=== PATIENT | female | born 1975 | race Two or more races ===

== ENCOUNTER → 2018-01-04 | Emergency (ER) | payer OTHER ==
[~2018-01-04] VITALS: Ht 167.6 cm; Wt 84.4 kg
[~2018-01-04] MED LIST: KETO10TA2 PO; MUCINEX DM ER1 EAC1 PO; MUCINEX600 MG; PROMETH-CODEIN 65 ML PO; TOPROL XL25 MG PO; VOLTAREM 50 MG PO; ZITHROMAX500 MG PO
== END | disposition home or self-care (01) ==
LOC: ER 06:58
DX: J32.8 Other chronic sinusitis (principal); R50.9 Fever, unspecified

== ENCOUNTER 2018-06-21 00:37 | Emergency (ER) | payer OTHER ==
[~2018-06-21] VITALS: Ht 170.2 cm; Wt 83.9 kg
[2018-06-21] MEDS ORDERED: REDNESS RELIEF15 ML OP (01:10)
[2018-06-21] MEDS ORDERED: GARAMYCIN OPHT3.5 GM OP (01:10)
== END 2018-06-21 01:30 | disposition home or self-care (01) ==
LOC: ER 00:37
DX: H10.89 Other conjunctivitis (principal)

== ENCOUNTER 2018-11-10 15:06 | Emergency (ER) | payer OTHER ==
[~2018-11-10] VITALS: Ht 170.2 cm; Wt 83.9 kg
[~2018-11-10 15:06] MED LIST changes: +GARAMYCIN OPHT3.5 GM OP; +REDNESS RELIEF15 ML OP
== END 2018-11-10 16:21 | disposition home or self-care (01) ==
LOC: ER 15:06
DX: N39.0 Urinary tract infection, site not specified (principal)

== ENCOUNTER 2018-12-15 12:40 | Outpatient (CLI) | payer OTHER | END 2018-12-15 12:54 | disposition home or self-care (01) | LOC: LAB 12:40 | DX: Z11.3 Encounter for screening for infections with a predominantly sexual mode of transmission (principal) ==

== ENCOUNTER → 2019-02-13 06:48 | Outpatient (CLI) | payer OTHER | END | disposition home or self-care (01) | LOC: LAB 06:48 | DX: N91.1 Secondary amenorrhea (principal) ==

== ENCOUNTER 2019-02-13 07:19 | Outpatient (CLI) | payer OTHER | END 2019-02-13 07:43 | disposition home or self-care (01) | LOC: MAMO-SONO 07:19 | DX: N60.01 Solitary cyst of right breast (principal); N91.1 Secondary amenorrhea; Z12.31 Encounter for screening mammogram for malignant neoplasm of breast ==

== ENCOUNTER 2020-03-05 09:03 | Outpatient (CLI) | payer OTHER | END 2020-03-05 09:06 | disposition home or self-care (01) | LOC: CERTIFICAD 09:03 → LAB 09:03 | PROVIDERS: ATTEND Family Medicine | DX: Z11.1 Encounter for screening for respiratory tuberculosis (principal) ==

== ENCOUNTER 2020-05-23 05:00 | Outpatient (CLI) | payer OTHER | END 2020-05-23 15:41 | disposition home or self-care (01) | LOC: PPH VACUNA 05:00 | DX: Z23 Encounter for immunization (principal) ==

== ENCOUNTER 2020-06-05 08:53 | Outpatient (CLI) | payer OTHER | END 2020-06-05 08:57 | disposition home or self-care (01) | LOC: LAB 08:53 | PROVIDERS: ATTEND Obstetrics & Gynecology | DX: D64.89 Other specified anemias (principal); N39.0 Urinary tract infection, site not specified; E03.8 Other specified hypothyroidism; E13.9 Other specified diabetes mellitus without complications; E78.00 Pure hypercholesterolemia, unspecified ==

== ENCOUNTER → 2020-06-05 | Outpatient (CLI) | payer OTHER | END | disposition home or self-care (01) | LOC: MAMO-SONO 05-20 07:45 | PROVIDERS: ATTEND Obstetrics & Gynecology | DX: Z12.31 Encounter for screening mammogram for malignant neoplasm of breast (principal); N60.01 Solitary cyst of right breast ==

== ENCOUNTER 2020-08-21 10:01 | Outpatient (CLI) | payer OTHER | END 2020-08-21 18:00 | disposition home or self-care (01) | LOC: PPH VACUNA 10:01 | DX: Z23 Encounter for immunization (principal) ==

== ENCOUNTER 2021-08-25 13:34 | Outpatient (CLI) | payer OTHER | END 2021-08-25 13:54 | disposition home or self-care (01) | LOC: LAB 13:34 | PROVIDERS: ATTEND General Practice | DX: Z20.828 Contact with and (suspected) exposure to other viral communicable diseases (principal); R05.8 Other specified cough; R06.02 Shortness of breath; R50.9 Fever, unspecified; Z03.818 Encounter for observation for suspected exposure to other biological agents ruled out ==

== ENCOUNTER 2021-08-25 13:54 | Emergency (ER) | payer OTHER ==
[~2021-08-25] VITALS: Ht 170.2 cm; Wt 83.9 kg
== END 2021-08-25 16:00 | disposition home or self-care (01) ==
LOC: ER 13:54
DX: B34.9 Viral infection, unspecified (principal); B96.0 Mycoplasma pneumoniae [M. pneumoniae] as the cause of diseases classified elsewhere

== ENCOUNTER 2021-09-29 11:27 | Outpatient (CLI) | payer OTHER | END 2021-09-29 14:41 | disposition home or self-care (01) | LOC: LAB 11:27 | DX: Z20.828 Contact with and (suspected) exposure to other viral communicable diseases (principal) ==

== ENCOUNTER 2022-01-07 08:37 | Emergency (ER) | payer OTHER ==
[~2022-01-07] VITALS: Ht 170.2 cm; Wt 83.9 kg
== END 2022-01-07 10:40 | disposition home or self-care (01) ==
LOC: ER 08:37
DX: J06.9 Acute upper respiratory infection, unspecified (principal); B34.9 Viral infection, unspecified

== ENCOUNTER 2022-02-01 12:05 | Outpatient (CLI) | payer OTHER | END 2022-02-01 12:08 | disposition home or self-care (01) | LOC: LAB 12:05 | DX: Z20.828 Contact with and (suspected) exposure to other viral communicable diseases (principal) ==

== ENCOUNTER 2022-06-11 13:14 | Outpatient (CLI) | payer OTHER | END 2022-06-11 13:15 | disposition home or self-care (01) | LOC: PPH VACUNA 13:14 | PROVIDERS: ATTEND Emergency Medicine Pediatric Emergency Medicine | DX: Z23 Encounter for immunization (principal) ==

== ENCOUNTER 2022-07-08 09:00 | Emergency (ER) | payer OTHER ==
[~2022-07-08] VITALS: Ht 167.6 cm; Wt 72.6 kg
[~2022-07-08 09:00] MED LIST changes: +BENADRYL25 MG PO; +MEDROL8 MG PO
== END 2022-07-08 09:52 | disposition home or self-care (01) ==
LOC: ER 09:00
DX: R21 Rash and other nonspecific skin eruption (principal); T78.40XA Allergy, unspecified, initial encounter

== ENCOUNTER 2022-08-11 07:30 | Outpatient (CLI) | payer OTHER | END 2022-08-11 15:24 | disposition home or self-care (01) | LOC: MAMO-SONO 07:30 | PROVIDERS: ATTEND Obstetrics & Gynecology | DX: N60.99 Unspecified benign mammary dysplasia of unspecified breast (principal) ==

== ENCOUNTER → 2022-10-19 06:14 | Outpatient (CLI) | payer OTHER | END | disposition home or self-care (01) | LOC: LAB 06:14 | PROVIDERS: ATTEND Emergency Medicine | DX: R10.30 Lower abdominal pain, unspecified (principal) ==

== ENCOUNTER 2023-02-22 06:38 | Outpatient (CLI) | payer OTHER | END 2023-02-22 06:44 | disposition home or self-care (01) | LOC: LAB 06:38 | PROVIDERS: ATTEND General Practice | DX: E78.5 Hyperlipidemia, unspecified (principal); E55.9 Vitamin D deficiency, unspecified; R10.9 Unspecified abdominal pain; R42 Dizziness and giddiness; N39.0 Urinary tract infection, site not specified; Z00.00 Encounter for general adult medical examination without abnormal findings ==

== ENCOUNTER 2023-08-24 07:06 | Emergency (ER) | payer OTHER ==
[~2023-08-24] VITALS: Ht 170.2 cm; Wt 80.7 kg
[2023-08-24 07:53] LABS: HEMATOCRIT 37.7 % (36.0-45.00); HEMOGLOBIN 12.8 g/dL (12.0-15.00); MEAN CORPUSCULAR HEMOGLOBIN 31.8 pg (27.00-32.0); MEAN CORPUSCULAR HGB CONC 33.8 g/dl (32.0-36.0); PLATELET COUNT 202 K/uL (150-450); RED BLOOD COUNT 4.01 M/uL (4.00-6.00); RED CELL DISTRIBUTION WIDTH 13.3 % (11.5-14.5)
[2023-08-24 08:32] LABS: ALBUMIN 4.1 gm/dL (3.4-5.0); BILIRUBIN TOTAL 0.52 mg/dL (0.3-1.2); CALCIUM 9.3 mg/dL (8.5-10.1); CREATININE SERUM 0.85 mg/dL (0.55-1.02); GFR 71.08; GLOBULINA 4.4 G/DL (2.4-3.5); POTASSIUM 3.41 mEq/L (3.5-5.1); TOTAL PROTEIN 8.5 gm/dL (6.4-8.2)
[2023-08-24] MEDS ORDERED: PEPCID AC20 MG PO (11:16)
[2023-08-24] MEDS ORDERED: ONDANSETRON ODT8 MG PO (11:16)
== END 2023-08-24 12:31 | disposition home or self-care (01) ==
LOC: ER 07:06
PROVIDERS: General Practice
DX: K52.89 Other specified noninfective gastroenteritis and colitis (principal); Z91.018 Allergy to other foods

== ENCOUNTER → 2023-10-03 11:21 | Outpatient (CLI) | payer OTHER ==
[~2023-10-03 11:21] MED LIST changes: +ONDANSETRON ODT8 MG PO; +PEPCID AC20 MG PO
== END | disposition home or self-care (01) ==
LOC: LAB 11:21
DX: B34.9 Viral infection, unspecified (principal); U07.1 COVID-19

== ENCOUNTER 2023-10-15 07:15 | Outpatient (CLI) | payer OTHER ==
[2023-10-15 08:17] LABS: URINE APPEARANCE Clear; URINE BILIRRUBIN Negative (NEGATIVE); URINE BLOOD Negative; URINE COLOR Yellow; URINE GLUCOSE Negative (NEGATIVE); URINE LEUKOCYTE Negative; URINE NITRATE Negative; URINE PROTEIN Negative (NEGATIVE); URINE UROBILINOGEN 0.2 E.U./dl
[2023-10-15 08:21] LABS: URINE BACTERIA 260.7 uL (0.0-1933); URINE EPITHELIAL CELLS 2.9 uL (0.0-38.8); URINE RBC 5.8 uL (0.0-20.8); URINE WBC 1.8 uL (0.0-23.2)
[2023-10-15 09:21] LABS: HEMOGLOBIN 11.6 g/dL (12.0-15.00); MEAN CELL VOLUME 94.2 fL (80.00-100.00); MEAN CORPUSCULAR HEMOGLOBIN 32.1 pg (27.00-32.0); MEAN CORPUSCULAR HGB CONC 34.1 g/dl (32.0-36.0); PLATELET COUNT 186 K/uL (150-450); RED BLOOD COUNT 3.62 M/uL (4.00-6.00); RED CELL DISTRIBUTION WIDTH 13.9 % (11.5-14.5)
[2023-10-15 09:35] LABS: ALBUMIN 3.6 gm/dL (3.4-5.0); BILIRUBIN TOTAL 0.33 mg/dL (0.3-1.2); CALCIUM 8.7 mg/dL (8.5-10.1); CREATININE SERUM 0.82 mg/dL (0.55-1.02); GFR 73.79; GLOBULINA 3.5 G/DL (2.4-3.5); POTASSIUM 4.42 mEq/L (3.5-5.1); TOTAL PROTEIN 7.1 gm/dL (6.4-8.2); TSH 2.06 uIU/mL (0.358-3.74)
[2023-10-15 09:38] LABS: INR 0.94; PARTIAL THROMBOPLASTIN TIME 27.4 SECONDS (22.0-34.0); PROTHROMBIN TIME 9.9 SECONDS (9.0-11.5)
== END 2023-10-15 07:19 | disposition home or self-care (01) ==
LOC: LAB 07:15
DX: R42 Dizziness and giddiness (principal); Z13.9 Encounter for screening, unspecified

== ENCOUNTER 2024-04-24 07:35 | Outpatient (CLI) | payer OTHER ==
[2024-04-24 08:26] LABS: PH,URINE 5.5 (5.0-8.0); URINE APPEARANCE Clear; URINE BILIRRUBIN Negative (NEGATIVE); URINE BLOOD Negative; URINE COLOR Yellow; URINE GLUCOSE Negative (NEGATIVE); URINE KETONE Negative (NEGATIVE); URINE LEUKOCYTE Negative; URINE NITRATE Negative; URINE PROTEIN Negative (NEGATIVE); URINE UROBILINOGEN 0.2 E.U./dl
[2024-04-24 08:31] LABS: HEMATOCRIT 32.9 % (36.0-45.00); HEMOGLOBIN 11.2 g/dL (12.0-15.00); MEAN CELL VOLUME 95.9 fL (80.00-100.00); MEAN CORPUSCULAR HEMOGLOBIN 32.5 pg (27.00-32.0); MEAN CORPUSCULAR HGB CONC 33.9 g/dl (32.0-36.0); PLATELET COUNT 152 K/uL (150-450); RED BLOOD COUNT 3.43 M/uL (4.00-6.00); RED CELL DISTRIBUTION WIDTH 13.4 % (11.5-14.5)
[2024-04-24 08:33] LABS: URINE BACTERIA 551.8 uL (0.0-1933); URINE EPITHELIAL CELLS 53.2 uL (0.0-38.8); URINE RBC 7.4 uL (0.0-20.8); URINE WBC 2.3 uL (0.0-23.2)
[2024-04-24 08:34] LABS: ERYTHROCYTE SEDIMENTATION RATE 10 mm/hr
[2024-04-24 09:15] LABS: ALBUMIN 3.7 gm/dL (3.4-5.0); ALKALINE PHOSPHATASE 88 U/L (50-136); ALT/SGPT 32 U/L (12-78); ANION GAP 10 (10.0-20.0); AST/SGOT 27 U/L (15-37); BILIRUBIN TOTAL 0.39 mg/dL (0.3-1.2); BLOOD UREA NITROGEN 22 mg/dL (7-18); BUN CREA RATIO 27 (7.0-25.0); CALCIUM 8.6 mg/dL (8.5-10.1); CARBON DIOXIDE 27 mEq/L (21-32); CHLORIDE 105 mmol/L (98-107); CHOLESTEROL 150 mg/dL (0-200); CREATININE SERUM 0.81 mg/dL (0.55-1.02); GFR 74.84; GLOBULINA 3.5 G/DL (2.4-3.5); GLUCOSE FASTING 84 mg/dL (65-100); HDL 76 mg/dl (40-60); LDL 67 mg/dl (0-130); OSMOLALITY SERUM 278 MOSM/KG (275-295); POTASSIUM 3.52 mEq/L (3.5-5.1); SODIUM 138 mmol/L (136-145); TOTAL PROTEIN 7.2 gm/dL (6.4-8.2); TRIGLYCERIDES 36 mg/dL (0-150); VLDL 7 (0-39)
[2024-04-24 09:28] LABS: C-REACTIVE PROTEIN < 0.29 MG/DL (0.00-0.29)
== END 2024-04-24 07:45 | disposition home or self-care (01) ==
LOC: LAB 07:35
PROVIDERS: ATTEND Internal Medicine
DX: M25.569 Pain in unspecified knee (principal); J06.9 Acute upper respiratory infection, unspecified; E55.9 Vitamin D deficiency, unspecified; Z00.00 Encounter for general adult medical examination without abnormal findings; R73.9 Hyperglycemia, unspecified; E78.9 Disorder of lipoprotein metabolism, unspecified; Z12.11 Encounter for screening for malignant neoplasm of colon

== ENCOUNTER 2024-04-25 13:08 | Outpatient (CLI) | payer OTHER | END 2024-04-25 13:29 | disposition home or self-care (01) | LOC: LAB 13:08 | PROVIDERS: ATTEND Preventive Medicine Occupational Medicine | DX: Z00.00 Encounter for general adult medical examination without abnormal findings (principal) ==

== ENCOUNTER 2024-05-04 13:44 | Outpatient (CLI) | payer OTHER ==
[2024-05-04 14:02] LABS: ob NEGATIVE (NEGATIVE)
== END 2024-05-04 13:50 | disposition home or self-care (01) ==
LOC: LAB 13:44
PROVIDERS: ATTEND Internal Medicine
DX: M25.569 Pain in unspecified knee (principal); J06.9 Acute upper respiratory infection, unspecified; E55.9 Vitamin D deficiency, unspecified; Z00.00 Encounter for general adult medical examination without abnormal findings; R73.9 Hyperglycemia, unspecified; E78.9 Disorder of lipoprotein metabolism, unspecified; Z12.11 Encounter for screening for malignant neoplasm of colon

== ENCOUNTER 2024-12-19 06:16 | Outpatient (CLI) | payer OTHER ==
[2024-12-19 06:54] LABS: HEMATOCRIT 34.3 % (36.0-45.00); HEMOGLOBIN 11.5 g/dL (12.0-15.00); MEAN CORPUSCULAR HEMOGLOBIN 30.8 pg (27.00-32.0); MEAN CORPUSCULAR HGB CONC 33.4 g/dl (32.0-36.0); PLATELET COUNT 167 K/uL (150-450); RED BLOOD COUNT 3.72 M/uL (4.00-6.00); RED CELL DISTRIBUTION WIDTH 14.3 % (11.5-14.5)
[2024-12-19 06:56] LABS: URINE APPEARANCE Clear; URINE BILIRRUBIN Negative (NEGATIVE); URINE BLOOD Negative; URINE COLOR Yellow; URINE GLUCOSE Negative (NEGATIVE); URINE KETONE Negative (NEGATIVE); URINE LEUKOCYTE Negative; URINE NITRATE Negative; URINE PROTEIN Negative (NEGATIVE); URINE UROBILINOGEN 0.2 E.U./dl
[2024-12-19 07:00] LABS: URINE BACTERIA 53.8 uL (0.0-1933); URINE EPITHELIAL CELLS 2.9 uL (0.0-38.8); URINE RBC 23.5 uL (0.0-20.8); URINE WBC 1.8 uL (0.0-23.2)
[2024-12-19 07:01] LABS: ERYTHROCYTE SEDIMENTATION RATE 14 mm/hr
[2024-12-19 07:43] LABS: ALBUMIN 3.8 gm/dL (3.4-5.0); ALKALINE PHOSPHATASE 97 U/L (50-136); ALT/SGPT 37 U/L (12-78); ANION GAP 10 (10.0-20.0); AST/SGOT 35 U/L (15-37); BILIRUBIN TOTAL 0.46 mg/dL (0.3-1.2); BLOOD UREA NITROGEN 21 mg/dL (7-18); BUN CREA RATIO 24 (7.0-25.0); CARBON DIOXIDE 27 mEq/L (21-32); CHLORIDE 105 mmol/L (98-107); CHOL HDL RATIO 2.1 (0-5.0); CHOLESTEROL 175 mg/dL (0-200); CREATININE SERUM 0.87 mg/dL (0.55-1.02); GFR 68.64; GLOBULINA 3.4 G/DL (2.4-3.5); GLUCOSE FASTING 92 mg/dL (65-100); HDL 85 mg/dl (40-60); LDL 80 mg/dl (0-130); OSMOLALITY SERUM 278 MOSM/KG (275-295); POTASSIUM 3.95 mEq/L (3.5-5.1); SODIUM 138 mmol/L (136-145); TOTAL PROTEIN 7.2 gm/dL (6.4-8.2); TRIGLYCERIDES 48 mg/dL (0-150); VLDL 9 (0-39)
[2024-12-19 07:45] LABS: C-REACTIVE PROTEIN < 0.29 MG/DL (0.00-0.29)
[2024-12-19 23:54] LABS: ob POSITIVE (NEGATIVE)
== END 2024-12-19 06:31 | disposition home or self-care (01) ==
LOC: LAB 06:16
PROVIDERS: ATTEND Internal Medicine
DX: M25.569 Pain in unspecified knee (principal); J06.9 Acute upper respiratory infection, unspecified; E55.9 Vitamin D deficiency, unspecified; Z00.00 Encounter for general adult medical examination without abnormal findings; R73.9 Hyperglycemia, unspecified; E78.9 Disorder of lipoprotein metabolism, unspecified; Z12.11 Encounter for screening for malignant neoplasm of colon

== ENCOUNTER 2025-06-11 07:34 | Outpatient (CLI) | payer OTHER | END 2025-06-11 07:39 | disposition home or self-care (01) | LOC: MAMO-SONO 07:34 | PROVIDERS: ATTEND Obstetrics & Gynecology | DX: N60.09 Solitary cyst of unspecified breast (principal) ==

== ENCOUNTER 2025-06-20 09:26 | Outpatient (CLI) | payer OTHER | END 2025-06-20 09:36 | disposition home or self-care (01) | LOC: PPH VACUNA 09:26 | PROVIDERS: ATTEND Emergency Medicine Pediatric Emergency Medicine | DX: Z23 Encounter for immunization (principal) ==

== ENCOUNTER 2025-08-10 07:37 | Outpatient (CLI) | payer OTHER ==
[2025-08-10 08:12] LABS: URINE APPEARANCE Clear; URINE BILIRRUBIN Negative (NEGATIVE); URINE BLOOD NHT; URINE COLOR Yellow; URINE GLUCOSE Negative (NEGATIVE); URINE KETONE Negative (NEGATIVE); URINE LEUKOCYTE Negative; URINE NITRATE Negative; URINE PROTEIN Negative (NEGATIVE); URINE UROBILINOGEN 1.0 E.U./dl
[2025-08-10 08:15] LABS: URINE BACTERIA 14.8 uL (0.0-1933); URINE EPITHELIAL CELLS 1.6 uL (0.0-38.8); URINE RBC 28.0 uL (0.0-20.8)
[2025-08-10 08:16] LABS: BASO % 0.9 % (0.1-1.2); EOS # 0.13 (0.04-0.54); EOS % 2.9 % (0.7-7.0); LYMPH # 1.90 (1.18-3.74); LYMPH % 42.8 % (19.3-53.1); MEAN PLATELET VOLUME 10.60 fl (9.4-12.4); MONO # 0.55 (0.24-0.82); NEUT # 1.82 (1.56-6.13); NEUT % 41.0 % (34.0-71.1); RED CELL DISTRIBUTION WIDTH 13.7 % (11.6-14.4)
[2025-08-10 08:27] LABS: URINE CAST 0.00 uL (0.0-1.40); URINE WBC 0.3 uL (0.0-23.2)
[2025-08-10 08:28] LABS: MONO % 12.4 % (4.7-12.5)
[2025-08-10 08:30] LABS: ERYTHROCYTE SEDIMENTATION RATE 36 mm/hr (0-30)
[2025-08-10 09:23] LABS: ALT/SGPT 38 U/L (12-78); AST/SGOT 33 U/L (15-37); BILIRUBIN TOTAL 0.48 mg/dL (0.3-1.2); BUN CREA RATIO 24 (7.0-25.0); CHOL HDL RATIO 1.9 (0-5.0); CREATININE SERUM 0.83 mg/dL (0.55-1.02); GFR 72.47; GLOBULINA 4.3 G/DL (2.4-3.5); GLUCOSE FASTING 92 mg/dL (65-100); HDL 99 mg/dl (40-60); LDL 79 mg/dl (0-130); OSMOLALITY SERUM 280 MOSM/KG (275-295); TSH 2.220 uIU/mL (0.358-3.74); VLDL 7 (0-39)
== END 2025-08-10 07:41 | disposition home or self-care (01) ==
LOC: LAB 07:37
PROVIDERS: ATTEND Internal Medicine
DX: M25.569 Pain in unspecified knee (principal); J06.9 Acute upper respiratory infection, unspecified; E55.9 Vitamin D deficiency, unspecified; Z00.00 Encounter for general adult medical examination without abnormal findings; R73.9 Hyperglycemia, unspecified; E78.9 Disorder of lipoprotein metabolism, unspecified; R19.5 Other fecal abnormalities